=== PATIENT | female | born 1990 | race Asian ===

== ENCOUNTER 2022-07-03 16:10 | Inpatient (IN) | payer OTHER ==
[2022-07-03] MEDS ORDERED: Sodium Chloride 0.9% 10 ML Syringe FLUSH PRN (16:13)
[2022-07-03] MEDS ORDERED: Tranexamic Acid 1,000 MG in Sodium Chloride 0.9% 100 ML IV PRN (16:13)
[2022-07-03] MEDS ORDERED: Methylergonovine 0.2 MG/1 ML Amp IM PRN (16:13)
[2022-07-03] MEDS ORDERED: Carboprost Tromethamine 250 MCG/1 ML Amp IM PRN (16:13)
[2022-07-03] MEDS ORDERED: Ondansetron 4 MG/2 ML SDV IVPUSH PRN (16:13)
[2022-07-03] MEDS ORDERED: Sodium Chloride 0.9% 2.5 ML Syringe FLUSH PRN (16:13)
[2022-07-03] MEDS ORDERED: Sodium Chloride 0.9% 20 ML SDV IV PRN (16:13)
[2022-07-03] MEDS ORDERED: Water For Irrigation,Sterile 1,000 ML Container IRR PRN (16:13)
[2022-07-03] MEDS ORDERED: Butorphanol 1 MG/ML SDV IVPUSH PRN (16:13)
[2022-07-03] MEDS ORDERED: Misoprostol 200 MCG Tab PO PRN (16:13)
[2022-07-03] MEDS ORDERED: Lidocaine 1% 50 ML MDV INJECT PRN (16:13)
[2022-07-03] MEDS ORDERED: Oxytocin/0.9 % Sodium Chloride 30 UNIT/500 ML BAG IV SCH (16:15)
[2022-07-03] MEDS: Lactated Ringers 1,000 ML IV SCH ×2 (16:30→17:45)
[2022-07-03] MEDS ORDERED: Ropivacaine/PF 400 MG/200 ML PCA ONE (16:41)
[2022-07-03] MEDS ORDERED: Bupivacaine 0.5% 10 ML SDV ONE (16:41)
[2022-07-03] MEDS ORDERED: Phenylephrine HCl In 0.9% NaCl 1 MG/10 ML Vial IVPUSH PRN (17:19)
[2022-07-03] MEDS ORDERED: ePHEDrine 50 MG/ML SDV IVPUSH PRN ×2 (17:19)
[2022-07-03] MEDS ORDERED: Phenylephrine HCl In 0.9% NaCl 1 MG/10 ML Vial IVPUSH SCH (17:30)
[2022-07-03] MEDS ORDERED: Ropivacaine HCl/PF 400 MG in Premix Bag 1 BAG EPIDUR SCH (17:30)
[2022-07-04] MEDS: Acetaminophen 500 MG Tab PO PRN ×2 (00:12→06:35)
[2022-07-04] MEDS: Lactated Ringers 1,000 ML IV SCH ×2 (00:39→04:33)
[2022-07-04] MEDS ORDERED: Oxytocin/0.9 % Sodium Chloride 30 UNIT/500 ML BAG IV SCH (00:45)
[2022-07-04] MEDS: Ampicillin 1 GM in Sodium Chloride 0.9% 50 ML IV SCH ×7 (05:07→21:09)
[2022-07-04] MEDS: Clindamycin Phosphate in D5W 600 MG in Premix Bag 1 BAG IV SCH ×6 (05:51→22:00)
[2022-07-04] MEDS: GENTAMICIN IV SCH ×2 (07:08)
[2022-07-04] MEDS: DEXTROSE 5% IV SCH ×2 (07:08)
[2022-07-04] MEDS: WATER IV SCH ×2 (07:08)
[2022-07-04] MEDS ORDERED: Witch Hazel Medicated Pads 40/Jar TOP PRN (10:51)
[2022-07-04] MEDS ORDERED: oxyCODONE 5 MG Tab PO PRN (10:51)
[2022-07-04] MEDS ORDERED: Bisacodyl 10 MG Supp RECTAL PRN (10:51)
[2022-07-04] MEDS ORDERED: Benzocaine/Menthol 20%-0.5% Spray 78 GM Cannister TOP PRN (10:51)
[2022-07-04] MEDS ORDERED: Lanolin 100% Cream 7 GM Tube TOP PRN (10:51)
[2022-07-04] MEDS ORDERED: Docusate Sodium 100 MG Cap PO PRN (10:51)
[2022-07-04] MEDS ORDERED: Hydrocortisone 2.5% Crm 30 GM Tube TOP PRN (10:51)
[2022-07-04] MEDS ORDERED: Acetaminophen 500 MG Tab PO PRN ×2 (10:51)
[2022-07-04] MEDS ORDERED: Ibuprofen 400 MG Tab PO PRN (10:51)
[2022-07-04] MEDS: Ibuprofen 800 MG Tab PO PRN (13:14)
[2022-07-05] MEDS: Ibuprofen 800 MG Tab PO PRN (01:32)
[2022-07-05] MEDS: Ampicillin 1 GM in Sodium Chloride 0.9% 50 ML IV SCH ×3 (01:33→09:20)
[2022-07-05] MEDS: Clindamycin Phosphate in D5W 600 MG in Premix Bag 1 BAG IV SCH ×2 (04:59)
[2022-07-05] MEDS: DEXTROSE 5% IV SCH ×2 (08:03)
[2022-07-05] MEDS: WATER IV SCH ×2 (08:03)
[2022-07-05] MEDS: GENTAMICIN IV SCH ×2 (08:03)
[2022-07-05] MEDS ORDERED: diphenhydrAMINE 25 MG Cap PO PRN (14:13)
[2022-07-06] MEDS: Ibuprofen 800 MG Tab PO PRN (04:07)
== END 2022-07-06 19:16 | disposition home or self-care (01) | DRG 805 ==
LOC: MW.OBCHECK 16:10 → MW.OB 16:13 → OBSVTOIN 07-04 10:51 → MW.OB 07-04 14:07
PROVIDERS: ADMIT Obstetrics & Gynecology; ATTEND Obstetrics & Gynecology
PROC: 10D07Z6 Extraction of Products of Conception, Vacuum, Via Natural or Artificial Opening (ICD-10-PCS; principal; 2022-07-04)
PROC: 0W8NXZZ Division of Female Perineum, External Approach (ICD-10-PCS; 2022-07-04)
PROC: 3E0R3BZ Introduction of Anesthetic Agent into Spinal Canal, Percutaneous Approach (ICD-10-PCS; 2022-07-04)
PROC: 00HU33Z Insertion of Infusion Device into Spinal Canal, Percutaneous Approach (ICD-10-PCS; 2022-07-04)
PROC: 10907ZC Drainage of Amniotic Fluid, Therapeutic from Products of Conception, Via Natural or Artificial Opening (ICD-10-PCS; 2022-07-04)
DX: O69.81X0 Labor and delivery complicated by cord around neck, without compression, not applicable or unspecified (principal); O41.1230 Chorioamnionitis, third trimester, not applicable or unspecified; Z37.0 Single live birth; O77.0 Labor and delivery complicated by meconium in amniotic fluid; Z20.822 Contact with and (suspected) exposure to COVID-19; Z3A.39 39 weeks gestation of pregnancy
CPT/HCPCS: 01967; 36415; 51702; 80170; 82803; 85025; 85027; 86592; 86850; 86900; 86901; A9270-GY; J0290; J1580; J2590; J2795; J3490; J7050; J7060; J7120; U0002